=== PATIENT | female | born 1955 | race Caucasian/White ===

== ENCOUNTER → 2025-02-15 11:39 | Outpatient (REF) | payer OTHER, SELFPAY | LOC: RAD 11:39 | PROVIDERS: ATTENDING PHYSICIAN Student in an Organized Health Care Education/Training Program | DX: R05.9 Cough, unspecified (principal) | CPT/HCPCS: 71046 ==

== ENCOUNTER → 2025-05-04 14:45 | Outpatient (REF) | payer OTHER, SELFPAY | LOC: HWRAD 14:45 | PROVIDERS: ATTENDING PHYSICIAN Internal Medicine Nephrology; FAMILY PHYSICIAN Physician Assistant Medical | DX: N17.9 Acute kidney failure, unspecified (principal) | CPT/HCPCS: 76770 ==

== ENCOUNTER → 2025-05-08 14:29 | Outpatient (REF) | payer OTHER, SELFPAY | LOC: RAD 14:29 | PROVIDERS: ATTENDING PHYSICIAN Physician Assistant Medical | DX: R16.0 Hepatomegaly, not elsewhere classified (principal) | CPT/HCPCS: 71260; 74177; Q9967 ==